=== PATIENT | female | born 1975 | race African-American/Black ===

== ENCOUNTER 2020-08-12 23:12 | Emergency (ER) | payer OTHER ==
[~2020-08-12] VITALS: Ht 160 cm; Wt 61.2 kg
--- NOTE | 2020-08-12 23:15 | NUR ---
ED Nurse Note: Logan walked into ED c/o generalized back pain onset for 1 day now, patient reports of stepping out of the shower,bent down and reached for an object and immediately felt a sharp pain,. patient reports of pain radiating from her lower back to her left hip. patient is alert and oriented x4, has prior history of back pain due to slipped discs. will continue to monitor
[2020-08-12 23:22] VITALS: BP 152/101
[2020-08-12] MEDS ORDERED: Ketorolac 60mg Inj IM ONE (23:45)
[2020-08-12] MEDS ORDERED: PREDNISONE20 MG ORAL (23:47)
[2020-08-12] MEDS ORDERED: PERCOCET 5-3251 EACH ORAL (23:47)
--- NOTE | 2020-08-12 23:47 | Emergency Room Report ---
History of Present Illness General Chief Complaint: Back Pain-No Injury Source: Patient Present Illness HPI This is a 44-year-old female with history of herniated disc in her neck and also some degenerative disc of her lumbar spine. This was from an MRI a couple years ago. She presents with chief complaint of lower back pain. She was getting out of shower yesterday and was reaching for something and felt sharp pain to her lower back on the left side. It radiated down her buttock and her back part of her thigh. Now she felt some numbness to her leg. Worse with certain position. Worse with movement. No incontinence of bowel or urine. No direct trauma. Pain is 8 out of 10. Better with [id number] medication and Flexeril. Denies any fever or chills. 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 COVID-19 Screening: Negative COVID-19 COVID-19 Testing Source: [facility] Patient History Past Medical History: see triage record, old chart reviewed Past Surgical History: none Pertinent Family History: none Social History: Denies: smoking Last Menstrual Period: june 2020 Now: No Immunizations: other Reviewed Nursing Documentation: PMH: Agreed; PSxH: Agreed Nursing Documentation-PMH Past Medical History: No History, Except For Review of Systems Eye: Denies: eye pain, blurred vision ENT: Denies: ear pain, nose congestion, throat swelling Respiratory: Denies: cough, shortness of breath Cardiovascular: Denies: chest pain, palpitations Gastrointestinal: Denies: abdominal pain, diarrhea, nausea, vomiting Musculoskeletal: Reports: back pain; Denies: joint pain Skin: Denies: rash Neurological: Denies: headache, numbness Endocrine: Denies: increased thirst, increased urine Hematologic/Lymphatic: Denies: easy bruising All Other Systems: negative except mentioned in HPI Physical Exam Vital Signs Date Time Temp Pulse Resp B/P (MAP) Pulse Ox O2 Delivery O2 Flow Rate FiO2 08/12/20 23:19 98.8 92 19 152/101 (118) 99 Room Air Vitals with high blood pressure Sp02 EP Interpretation: reviewed, normal General Appearance: well appearing, no apparent distress, alert Head: normocephalic, atraumatic Eyes: bilateral eye PERRL, bilateral eye EOMI ENT: hearing grossly normal, normal pharynx Neck: full range of motion, supple, no meningismus Respiratory: chest non-tender, lungs clear, normal breath sounds Cardiovascular #1: regular rate, rhythm, no murmur Gastrointestinal: normal bowel sounds, non tender, no mass, no organomegaly, no bruit, non-distended Musculoskeletal: back normal, normal range of motion, gait/station normal, tender - TTP to left lower lumbar area Psychiatric: mood/affect normal Medical Decision Making Diagnostic Impression: Primary Impression: Lumbar pain with radiation down left leg ER Course Patient presents with lower back pain with radiculopathy. No evidence of cauda equina syndrome, spinal epidural abscess or neoplastic process. Last Vital Signs Date Time Temp Pulse Resp B/P (MAP) Pulse Ox O2 Delivery O2 Flow Rate FiO2 08/12/20 23:22 98.8 82 19 152/101 99 Room Air Status: unchanged Disposition: HOME, SELF-CARE Condition: Stable Scripts Prednisone* (PREDNISONE*) 20 Mg Tablet 40 MG ORAL DAILY, #14 TAB Prov: Paul Brooks MD 08/12/20 Oxycodone/Acetaminophen 5-325* (PERCOCET 5-325 MG TABLET*) 1 Each Tablet 1 TAB ORAL Q6H PRN for For Pain, #20 TAB Prov: Paul Brooks MD 08/12/20 Referrals: NON PHYSICIAN (PCP) Patient Instructions: Back Pain, Adult Additional Instructions: No heavy lifting. Follow-up with your doctor in 7 days. You may need referral for rehab and physical therapy. Return if symptoms worsen. Paul Brooks MD Aug 12, 2020 23:47
[2020-08-13] VITALS: BP 152/101
== END 2020-08-13 | disposition home or self-care (01) ==
LOC: EMR 23:38
DX: M54.5 Low back pain (principal)
CPT/HCPCS: 96372; 99283